=== PATIENT | female | born 1945 | race Caucasian/White ===

== ENCOUNTER 2022-10-28 17:42 | Inpatient (IN) | payer MEDICARE, MEDICAID, SELFPAY ==
[2022-10-28] VITALS (10 sets, daily range): BP systolic 134–200; BP diastolic 61–87; PULSE 80–89; RESP 18–20; TEMP 36.8–36.9; O2SAT 95–97; BMI 51.5
[2022-10-28 19:15] LABS: Basophils # 0.1 K/mm3 (0-0.2); Basophils % 0.4 % (0.1-2.0); Eosinophils # 0.4 K/mm3 (0.0-0.4); Eosinophils % 2.8 % (0.1-12.0); Hematocrit 33.9 % (37.0-47.0); Hemoglobin 10.4 g/dL (12.2-16.2); Lymphocytes # 2.2 K/mm3 (0.7-4.5); Lymphocytes % 16.8 % (10-50); Mean Corpuscular HGB Conc 30.8 g/dL (31.8-35.4); Mean Corpuscular Hemoglobin 25.9 pg (27.0-31.2); Mean Corpuscular Volume 84.1 fl (81-99); Mean Platelet Volume 9.4 fl (7.4-10.4); Monocytes # 0.8 K/mm3 (0.1-1.0); Monocytes % 5.8 % (1.7-9.3); Neutrophils # 9.6 K/mm3 (1.8-7.8); Neutrophils % 74.1 % (37.0-80.0); Platelet Count 223 K/mm3 (142-424); Red Blood Count 4.03 M/mm3 (4.20-5.40); Red Cell Distribution Width 16.2 % (11.5-17.5); White Blood Count 12.9 K/mm3 (4.8-10.8)
[2022-10-28 19:25] LABS: Chloride 100 mmol/L (98-107); Potassium 4.1 mmoL/L (3.5-5.1); Sodium 137 mmol/L (136-145)
[2022-10-28 19:28] LABS: Alanine Aminotransferase 15 U/L (12-78); Albumin Level 3.5 g/dl (3.5-5.0); Alkaline Phosphatase 79 U/L (38-126); Anion Gap 12.1 mEq/L (5-15); Aspartate Amino Transferase 33 U/L (14-36); Bilirubin,Total 0.3 mg/dl (0.2-1.3); Blood Urea Nitrogen 14 mg/dl (7-17); Carbon Dioxide 29 mmol/L (22.0-30.0); Creatinine Clearance Estimated 41 mL/min (50-200); Estimated Glomerular Filt Rate 70 ml/min (>60); GFR (African American) 84 ML/MIN (>60); Globulin 3.6 g/dL (1.3-3.2); Total Protein,Serum 7.1 g/dl (6.3-8.2)
[2022-10-28 19:29] LABS: Calcium 9.1 mg/dl (8.4-10.2); Glucose 98 mg/dl (74-100)
--- NOTE | 2022-10-28 19:51 | PC.NURSE ---
Attempted to collect UA on pt with in/out cath. Shameka (tech) at bedside to assist, unable to position pt after several attempts to visualize urethra or vagina. Pt has significant amount of edema with multiple lesions. Large amount of purulent, malodorous discharge draining from area. MD informed of situation.
--- NOTE | 2022-10-28 20:05 | CT_ITS ---
PROCEDURE INFORMATION: Exam: CT Abdomen And Pelvis With Contrast Exam date and time: 10/28/2022 8:24 PM Age: 77 years old Clinical indication: Other: Vaginal bleeding; Prior surgery; Surgery date: 6+ months; Surgery type: Cholecystectomy TECHNIQUE: Imaging protocol: Computed tomography of the abdomen and pelvis with contrast. Radiation optimization: All CT scans at this facility use at least one of these dose optimization techniques: automated exposure control; mA and/or kV adjustment per patient size (includes targeted exams where dose is matched to clinical indication); or iterative reconstruction. Contrast material: ISOVUE; Contrast volume: 75 ml; Contrast route: IV; REPORTING DATA: Count of CT and Cardiac NM exams in prior 12 months: This patient has received 0 known CTs and 0 known cardiac nuclear medicine studies in the 12 months prior to the current study. COMPARISON: No relevant prior studies available. FINDINGS: Lungs: Lingula bronchiectasis. Mild scarring and atelectasis in the lower lungs. Heart: Mitral valve calcifications. Coronary arteries: Coronary artery calcifications. Liver: Hepatic cirrhosis with portal hypertension. Gallbladder and bile ducts: Gallbladder is absent. Pancreas: Mild pancreatic atrophy. Spleen: Mild splenomegaly. Adrenal glands: Normal. No mass. Kidneys and ureters: Low attenuation renal lesions measuring up to 17 mm in diameter are incompletely characterized, but are likely cysts. No followup imaging is warranted. Exophytic left renal nodule has possible enhancing components on image 48 series 1001. Stomach and bowel: Mild sigmoid diverticulosis without diverticulitis. Appendix: No evidence of appendicitis. Intraperitoneal space: Unremarkable. No free air. No significant fluid collection. Vasculature: The arteries demonstrate moderate atherosclerotic disease. Lymph nodes: Unremarkable. No enlarged lymph nodes. Urinary bladder: Urinary bladder is severely dilated. Bilateral hydronephrosis likely related to dilated urinary bladder. Reproductive: The endometrial cavity appears dilated and fluid-filled measuring up to 3.1 cm. The lower uterus and cervix appear enlarged. Bones/joints: Unremarkable. No acute fracture. Soft tissues: Evaluation is significantly limited due to soft tissue attenuation. Other findings: Stigmata of old granulomatous disease. IMPRESSION: 1. Evaluation is significantly limited due to soft tissue attenuation. 2. The endometrial cavity appears dilated and fluid-filled measuring up to 3.1 cm. The lower uterus and cervix appear enlarged. This is worrisome for cervical malignancy causing uterine obstruction. Endometrial hyperplasia/carcinoma is also possible. 3. Urinary bladder is severely dilated. This is worrisome for possible outlet obstruction related to malignancy. 4. Bilateral hydronephrosis likely related to dilated urinary bladder. Please exclude superimposed infection. 5. Hepatic cirrhosis with portal hypertension. 6. Exophytic left renal nodule has possible enhancing components on image 48 series 1001. Renal cell carcinoma is possible. 7. THIS REPORT CONTAINS FINDINGS THAT MAY BE CRITICAL TO PATIENT CARE. The findings were verbally communicated via telephone conference with Dr. Gracia at 8:45 PM EDT on 10/28/2022. The findings were acknowledged and understood. COMMENTS: Consistent with the [employer]'s Incidental Findings Committee white paper (J Am Fabien Radiol 2018): Any incidental renal lesion less than 1 cm or classified as too small to characterize, or any incidental cystic renal lesion characterized as simple-appearing
--- NOTE | 2022-10-28 20:28 | PC.NURSE ---
Pt to CT via stretcher
--- NOTE | 2022-10-28 20:35 | PC.NURSE ---
Pt back to room from [facility]
--- NOTE | 2022-10-28 20:45 | PC.NURSE ---
Dr. Gracia on phone with JAIMEAD
[2022-10-28 21:02] LABS: Microscopic, Urine URINE MICROSCOPIC (MICROSCOPIC)
[2022-10-28 21:04] LABS: Appearance,Urine SL CLOUDY (Clear); Bilirubin,Urine Negative (Negative); Blood, Urine 2+ (Negative); Color,Urine YELLOW (Yellow); Glucose,Urine (UA) Negative (Negative); Ketones,Urine Negative (Negative); Leukocyte Esterase,Urine 1+ (Negative); Nitrate,Urine POSITIVE (Negative); PH,Urine 5.5 (5.0-8.5); Protein,Urine 1+ (Negative); Urobilinogen,Urine 0.2 EU/dl (0.2)
--- NOTE | 2022-10-28 21:31 | PC.NURSE ---
Waiting for call back from [facility]. They did advise they have a wait list at this time.
--- NOTE | 2022-10-28 21:34 | HMH.EDUROGF ---
Discharge Plan Disposition Chief Complaint: Urogenital-Female Clinical Impressions Clinical Impression: Urinary tract infection, Cervical cancer, Acute urinary retention, Diabetes mellitus Discharge ED Provider: Basil (ED),Didier Mcclure Female Urogenital HPI General Chief complaint: Urogenital-Female Stated complaint: blood when urinating Time Seen by Provider: 10/28/22 21:34 Mode of Arrival: Wheelchair Source of Information: Patient, Relative and Medical Record Limitations: No Limitations Description of Symptoms (Recalled from ER Triage Doc. by RN): 77 F presents with 2 weeks of painful urination, bleeding, and a strong foul odor coming from her vagina. Patient reports she has had the painful urination in the past; however, the smell is worrying her. History of Present Illness HPI Narrative: pt with difficulty urinating and has vag bleeding and foul smelling d/c over the last 2 weeks - last pelvis about 3-4 yrs ago - hx of diabetes - MD Complaint: UTI , vaginal discharge and pelvic pain Onset (ago): day(s) Severity: moderate Duration: constant Urinary Symptoms: foul smelling urine Vaginal discharge: blood Sexual activity: no : No Associated symptoms: vaginal discharge and vaginal bleeding Related Data Home Medications Medication Instructions Recorded Confirmed acetaminophen 300 mg-codeine 60 mg 1 tab PO Q8H PRN Pain 10/28/22 10/28/22 tablet bumetanide 1 mg tablet 1 mg PO DAILY Edema 10/28/22 10/28/22 cholecalciferol (vitamin D3) 125 125 mcg PO DAILY Supplement 10/28/22 10/28/22 mcg (5,000 unit) tablet (Vitamin D3) gabapentin 400 mg capsule 400 mg PO TID Pain 10/28/22 10/28/22 glipizide 5 mg tablet 5 mg PO BID Diabetes 10/28/22 10/28/22 levothyroxine 100 mcg tablet 100 mcg PO DAILY Supplement 10/28/22 10/28/22 loratadine 10 mg tablet 10 mg PO DAILY Allergy symptoms 10/28/22 10/28/22 metformin 500 mg tablet 500 mg PO BIDWMEAL Diabetes 10/28/22 10/28/22 omeprazole 20 mg tablet,delayed 20 mg PO DAILY gerd 10/28/22 10/28/22 release oxybutynin chloride 5 mg 5 mg PO DAILY bladder 10/28/22 10/28/22 tablet,extended release 24 hr pravastatin 80 mg tablet 80 mg PO HS Cholesterol 10/28/22 10/28/22 Allergies Allergy/AdvReac Type Severity Reaction Status Date / Time cephalexin [From Keflex] AdvReac Intermediate Hives Verified 10/28/22 18:20 [facility] Disclaimer: The information contained in this section may have been updated after the patient was seen, as this information can be updated by other users. Social History Smoking Status: Former smoker alcohol intake: never current occupational status: retired Travel in the last 8 weeks: None ROS Obtained: Yes All systems reviewed & no additional complaints except as documented Physical Exam General General appearance: alert and obese Head Head exam: normocephalic Eye Eye exam: Present PERRL and EOMI; Absent scleral icterus ENT ENT exam: Present normal oropharynx Neck Neck exam: Present full ROM Respiratory Respiratory exam: Present other (dec bs bilat ); Absent respiratory distress Cardiovascular Cardiovascular exam: Present regular rate, systolic murmur and +S4 Abdominal Exam Abdominal exam: Present soft; Absent tenderness or guarding Extremities Exam Extremities exam: Absent calf tenderness Neurological Exam Neurological exam: Present alert, oriented X3 and CN II-XII intact; Absent motor sensory deficit Psychiatric Psychiatric exam: Present normal affect Skin Skin exam: Absent rash Medical Decision Making Medical Records Medical records reviewed: Yes I reviewed the patient's medical records. Bautista Inquiry Pt receiving controlled substance: No Vital Signs: 10/28/22 17:44 10/28/22 18:32 10/28/22 20:01 Temperature 98.5 F Temperature Source Oral Pulse Rate 80 80 Pulse Rate [Left] 85 Respiratory Rate 19 20 Blood Pressure 190/74 H 189/80 H Blood Pressure [Right Arm] 173/86 H Blood Pressure Mean 121 B
--- NOTE | 2022-10-28 21:39 | PC.NURSE ---
Waiting for call back from [facility]
--- NOTE | 2022-10-28 21:50 | PC.NURSE ---
tutorial laboratory supervisor notified of need for room
--- NOTE | 2022-10-28 22:01 | XR_ITS ---
PROCEDURE INFORMATION: Exam: XR Chest Exam date and time: 10/28/2022 10:02 PM Age: 77 years old Clinical indication: Shortness of breath; Additional info: SOB TECHNIQUE: Imaging protocol: Radiologic exam of the chest. Views: 1 view. COMPARISON: CT ABDOMEN PELVIS W CON 04/23/2023 20:24 FINDINGS: Lungs: Mild scarring and atelectasis in the lower lungs. Pleural spaces: Unremarkable. No pleural effusion. No pneumothorax. Heart/Mediastinum: Mild atherosclerotic disease of the aorta. No cardiomegaly. Bones/joints: Unremarkable. IMPRESSION: No active disease.
[2022-10-28 22:02] LABS: Coronavirus 19, PCR Not Detected (NotDetected); Influenza A, PCR Not Detected (NotDetected); Influenza B, PCR Not Detected (NotDetected)
[2022-10-28 22:06] LABS: Bacteria,Urine 4+ /lpf
--- NOTE | 2022-10-28 22:16 | PC.NURSE ---
Report received from Isabel Paniagua RN
[2022-10-28 22:18] LABS: Lactic Acid 1.6 mmol/L (0.7-2.1)
--- NOTE | 2022-10-28 22:48 | PC.NURSE ---
Kami Juarez Rn spoke with Bridger Nassar RN in ER who confirms vancomycin dose was confirmed with pharmacy that doseage is 2500 mg iv
--- NOTE | 2022-10-28 23:17 | EXP.HP ---
History of Present Illness *Admission Date: 10/28/22 *Reason for visit:: Dysuria, Urinary Retention *History of present illness: Ms. Figueroa is a 77-year-old female with a past medical history of DM, Diabetic Neuropathies, Hypothyroidism and Hyperlipidemia. She presents to [facility] due to a 2-week reported period of dysuria, urinary retention, strong vaginal odor and vaginal bleeding. In the ER the patient underwent a CT of the abdomen and pelvis that showed bilateral hydronephrosis related to dilated urinary bladder, endometrial cavity appearing dilated and fluid filled measuring up to 3.1 cm worrisome for cervical malignancy causing uterine obstruction. CBC showed a slightly elevated WBC at 12.9. CMP was unremarkable.Urinalysis showed 1 plus nitrates, 2 plus blood, 1 plus leukoesterase and 4 plus bacteria. In the ER, the patient had a carvalho placed and it returned 2000 ml of urine. The patient was admitted with initial impression: Acute Urinary Retention and UTI. OBGYN was asked to be primary. Hospital Medicine was consulted for medical management. [facility] Disclaimer: The information contained in this section may have been updated after the patient was seen, as this information can be updated by other users. Medical History Diabetes Hyperlipidemia Hypothyroidism Surgical History Hx of cholecystectomy Family History No significant family history Social History Smoking Status: Former smoker alcohol intake: never current occupational status: retired Travel in the last 8 weeks: None Review of Systems Review of Systems Review of systems:: pertinent systems reviewed and negative unless documented below Constitutional Constitutional: Reports system reviewed and no additional complaints, except as documented Eyes Eyes: Reports system reviewed and no additional complaints, except as documented ENT Ears, Nose, Mouth, and Throat: Reports system reviewed and no additional complaints, except as documented *Cardiovascular Cardiovascular: Reports system reviewed and no additional complaints, except as documented *Respiratory Respiratory: Reports system reviewed and no additional complaints, except as documented *Gastrointestinal Gastrointestinal: Reports abdominal pain *Genitourinary Genitourinary: Reports difficulty voiding, Reports dysuria, Reports hematuria, Reports vaginal discharge and Reports vaginal odor *Musculoskeletal Musculoskeletal: Reports system reviewed and no additional complaints, except as documented Integumentary/Breasts Skin/Breast: Reports system reviewed and no additional complaints, except as documented *Neurologic Neurologic: Reports system reviewed and no additional complaints, except as documented Psychiatric Psychiatric: Reports system reviewed and no additional complaints, except as documented Endocrine Endocrine: Reports system reviewed and no additional complaints, except as documented Hematologic/Lymphatic Hematologic/Lymphatic: Reports system reviewed and no additional complaints, except as documented Allergic/Immunologic Allergic/Immunologic: Reports system reviewed and no additional complaints, except as documented Meds Home Medications and Allergies Home Medications Medication Instructions Recorded Confirmed Type acetaminophen 300 mg-codeine 60 mg 1 tab PO TIDP PRN Mild Pain (Scale 10/28/22 10/29/22 History tablet Score 1-4) bumetanide 1 mg tablet 1 mg PO DAILY Edema 10/28/22 10/29/22 History gabapentin 400 mg capsule 400 mg PO TID Pain 10/28/22 10/29/22 History glipizide 5 mg tablet 5 mg PO BID Diabetes 10/28/22 10/29/22 History insulin glargine 100 unit/mL (3 40 unit SQ DAILY Diabetes 10/28/22 10/29/22 History mL) subcutaneous pen (Lantus Solostar U-100 I
[2022-10-29] VITALS (7 sets, daily range): BP systolic 147–164; BP diastolic 50–66; PULSE 76–88; RESP 17–24; TEMP 36.5–36.8; O2SAT 90–93; BMI 54.3
[2022-10-29 00:35] LABS: POC Glucose,Bedside 124 (70-110)
--- NOTE | 2022-10-29 03:43 | PC.NURSE ---
1 ml added to balloon of carvalho.
--- NOTE | 2022-10-29 05:00 | PC.NURSE ---
Patient has been awake the entire nite with visitor at bedside. Patient has remained afebrile thus far. Patient vital signs are WNL. Patient is alert and oriented. Patient has clear, yellow urine draining per gravity at bedside via coude catheter. Patient lung sounds remain unchanged and bowel sounds remain normoactive. Patient does continue to have vaginal drainage that is very foul smelling and brownish in color. Patient remains in good spirits.
[2022-10-29 06:05] LABS: POC Glucose,Bedside 156 (70-110)
[2022-10-29 06:32] LABS: Basophils % 0.3 % (0.1-2.0); Eosinophils # 0.2 K/mm3 (0.0-0.4); Eosinophils % 1.5 % (0.1-12.0); Hematocrit 32.8 % (37.0-47.0); Lymphocytes # 1.8 K/mm3 (0.7-4.5); Lymphocytes % 12.9 % (10-50); Mean Corpuscular HGB Conc 30.5 g/dL (31.8-35.4); Mean Corpuscular Hemoglobin 25.4 pg (27.0-31.2); Mean Corpuscular Volume 83.4 fl (81-99); Mean Platelet Volume 9.7 fl (7.4-10.4); Monocytes # 0.8 K/mm3 (0.1-1.0); Monocytes % 5.5 % (1.7-9.3); Neutrophils % 79.8 % (37.0-80.0); Platelet Count 216 K/mm3 (142-424); Red Blood Count 3.93 M/mm3 (4.20-5.40); Red Cell Distribution Width 16.1 % (11.5-17.5); White Blood Count 13.8 K/mm3 (4.8-10.8)
[2022-10-29 06:41] LABS: Chloride 102 mmol/L (98-107); Sodium 139 mmol/L (136-145)
[2022-10-29 06:44] LABS: Blood Urea Nitrogen 10 mg/dl (7-17); Calcium 8.9 mg/dl (8.4-10.2); Carbon Dioxide 30 mmol/L (22.0-30.0); Creatinine Clearance Estimated 41 mL/min (50-200); Estimated Glomerular Filt Rate 81 ml/min (>60); GFR (African American) 98 ML/MIN (>60); Glucose 133 mg/dl (74-100)
--- NOTE | 2022-10-29 07:55 | HMH.PHAINT1 ---
Pharmacy Intervention Comments: MEDICATION RECONCILIATION COMPLETED ON PATIENT USING EXTERNAL FILL HISTORY FROM PHARMACY AND DON REPORT. -IVON COLMENARES, CURTD
--- NOTE | 2022-10-29 08:16 | PC.NURSE ---
ASSISTED PT TO RESTROOM VIA WHEELCHAIR. PT TOLERATED WELL. CHANGED BOTTOM LINENS AND CHUX. MODERATE AMOUNT OF BROWN FLUID NOTED TO CHUX WITH FOUL ODOR. DR VALLEJO IN DEPT AND AWARE.
--- NOTE | 2022-10-29 08:35 | EXP.PHA.CONS ---
Pharmacy Consult Date: 10/29/22 Time: 08:35 Referring provider: DR VALLEJO Reason for Consult:: VANCOMYCIN DOSING CONSULT Allergies Allergy/AdvReac Type Severity Reaction Status Date / Time cephalexin [From Keflex] AdvReac Intermediate Hives Verified 10/28/22 18:20 Home Medications Medication Instructions Recorded Confirmed Type acetaminophen 300 mg-codeine 60 mg 1 tab PO TIDP PRN Mild Pain (Scale 10/28/22 10/29/22 History tablet Score 1-4) bumetanide 1 mg tablet 1 mg PO DAILY Edema 10/28/22 10/28/22 History cholecalciferol (vitamin D3) 125 125 mcg PO DAILY Supplement 10/28/22 10/28/22 History mcg (5,000 unit) tablet (Vitamin D3) gabapentin 400 mg capsule 400 mg PO TID Pain 10/28/22 10/28/22 History glipizide 5 mg tablet 5 mg PO BID Diabetes 10/28/22 10/28/22 History insulin glargine 100 unit/mL (3 40 unit SQ DAILY Diabetes 10/28/22 10/28/22 History mL) subcutaneous pen (Lantus Solostar U-100 Insulin) levothyroxine 100 mcg tablet 100 mcg PO DAILY THYROID 10/28/22 10/28/22 History loratadine 10 mg tablet 10 mg PO DAILY Allergy symptoms 10/28/22 10/28/22 History metformin 500 mg tablet 500 mg PO BIDWMEAL Diabetes 10/28/22 10/28/22 History omeprazole 20 mg tablet,delayed 20 mg PO DAILY Acid reflux 10/28/22 10/28/22 History release ergocalciferol (vitamin D2) 1,250 1,250 mcg PO WEEKLY Supplement 10/29/22 10/29/22 History mcg (50,000 unit) capsule (Vitamin D2) oxybutynin chloride 10 mg 10 mg PO DAILY BLADDER 10/29/22 10/29/22 History tablet,extended release 24 hr pravastatin 40 mg tablet 40 mg PO HS Cholesterol 10/29/22 10/29/22 History New Prescriptions to Start Prescriptions: Height: 1.63 m Weight: 144.242 kg Laboratory Results:: Laboratory Results - last 24 hr 10/28/22 18:55: Urine Color Yellow, Urine Appearance Sl cloudy, Urine pH 5.5, Ur Specific [place] 1.020, Urine Protein 1+, Urine Glucose (UA) Negative, Urine Ketones Negative, Urine Blood 2+, Urine Nitrate Positive, Urine Bilirubin Negative, Urine Urobilinogen 0.2, Ur Leukocyte Esterase 1+ A, Urine RBC 10-20, Urine WBC 5-10, Ur Squamous Epith Cells 3-5, Urine Bacteria 4+ 10/28/22 19:00: WBC 12.9 H, RBC 4.03 L, Hgb 10.4 L, Hct 33.9 L, MCV 84.1, MCH 25.9 L, MCHC 30.8 L, RDW 16.2, Plt Count 223, MPV 9.4, Neut % (Auto) 74.1, Lymph % (Auto) 16.8, Andrew % (Auto) 5.8, Eos % (Auto) 2.8, Baso % (Auto) 0.4, Neut # (Auto) 9.6 H, Lymph # (Auto) 2.2, Andrew # (Auto) 0.8, Eos # (Auto) 0.4, Baso # (Auto) 0.1 10/28/22 19:00: Sodium 137, Potassium 4.1, Chloride 100, Carbon Dioxide 29, Anion Gap 12.1, BUN 14, Creatinine 0.80, Estimated Creat Clear 41, Estimated GFR 70, Est GFR ( Amer) 84, Glucose 98, Calcium 9.1, Total Bilirubin 0.3, AST 33, ALT 15, Alkaline Phosphatase 79, Total Protein 7.1, Albumin 3.5, Globulin 3.6 H, Albumin/Globulin Ratio 1.0 L 10/28/22 21:50: SARS-CoV-2 (PCR) Not detected, Influenza A Untype (PCR) Not detected, Influenza Type B (PCR) Not detected 10/28/22 21:55: Lactate 1.6 10/29/22 00:28: POC Glucose 124 H 10/29/22 05:58: POC Glucose 156 H 10/29/22 06:26: WBC 13.8 H, RBC 3.93 L, Hgb 10.0 L, Hct 32.8 L, MCV 83.4, MCH 25.4 L, MCHC 30.5 L, RDW 16.1, Plt Count 216, MPV 9.7, Neut % (Auto) 79.8, Lymph % (Auto) 12.9, Andrew % (Auto) 5.5, Eos % (Auto) 1.5, Baso % (Auto) 0.3, Neut # (Auto) 11.0 H, Lymph # (Auto) 1.8, Andrew # (Auto) 0.8, Eos # (Auto) 0.2, Baso # (Auto) 0.0 10/29/22 06:26: Sodium 139, Potassium 4.0, Chloride 102, Carbon Dioxide 30, Anion Gap 11.0, BUN 10 D, Creatinine 0.70, Estimated Creat Clear 41, Estimated GFR 81, Est GFR ( Amer) 98, Glucose 133 H D, Calcium 8.9 Medical History: Medical History (Updated 10/28/22 @ 23:26 by Phani Staples DNP) Diabetes Hyperlipidemia Hypothyroidism Assessment and Plan Assessment and plan all Dx Assessment and Plan for all problems:: Pharmacokinetic dosing service Objective: Age: 77 yo Serum creatinine: 1 mg/dL Height: 64.2
--- NOTE | 2022-10-29 09:57 | PC.NURSE ---
0915: PT TAKEN TO DR VALLEJO'S OFFICE VIA WHEELCHAIR. ACCOMPANIED BY THIS RN AND KALE RAMIREZ. SEE DR VALLEJO'S NOTES FOR PROCEDURE DETAIL. 0945: PT RETURNED TO ROOM 280, CALL LIGHT WITHIN REACH. FAMILY PRESENT
--- NOTE | 2022-10-29 10:45 | PC.NURSE ---
DR DAMICO AT BEDSIDE SPEAKING WITH PATIENT AND FAMILY
--- NOTE | 2022-10-29 11:43 | HMH.ITSHM ---
Current Home Medications as stated by this patient Katty Figueroa or sales representative [employer]. []
--- NOTE | 2022-10-29 11:44 | HMH.ITSHM ---
Current Home Medications as stated by this patient Katty Figueroa or statement services representative. []
[2022-10-29 12:00] LABS: Hemoglobin A1C 5.7 % (4.0-6.0)
[2022-10-29 12:04] LABS: INR 1.14 (0.9-1.1); Prothrombin Time 12.2 seconds (10.1-12.5)
[2022-10-29 12:10] LABS: POC Glucose,Bedside 264 (70-110)
--- NOTE | 2022-10-29 12:19 | PC.NURSE ---
DR VALLEJO INQUIRED BY PHONE. PT HAS BEEN ACCEPTED BY DR SHANAE FLORES AT , AWAITING BED AVAILABILITY.
--- NOTE | 2022-10-29 12:21 | PC.NURSE ---
SPOKE WITH EMBER IN RADIOLOGY, CT SCAN AND CHEST XRAY TO BE SENT TO [facility]IA [facility].
[2022-10-29 12:38] LABS: Thyroid Stimulating Hormone 0.58 uIU/mL (0.465-4.68)
--- NOTE | 2022-10-29 12:45 | EXP.HPDC ---
General Admission date:: 10/28/22 Discharge date: 10/29/22 *Admission Date: 10/28/22 *Chief complaint: Vaginal bleeding/discharge, lower abdominal pain *History of present illness: Ms. Figueroa is a 77-year-old female with a past medical history of DM, Diabetic Neuropathies, Hypothyroidism and Hyperlipidemia. She presents to [facility] due to a 2-week reported period of dysuria, urinary retention, strong vaginal odor and vaginal bleeding.? In the ER the patient underwent a CT of the abdomen and pelvis that showed bilateral hydronephrosis related to dilated urinary bladder, endometrial cavity appearing dilated and fluid filled measuring up to 3.1 cm worrisome for cervical malignancy causing uterine obstruction.? CBC showed a slightly elevated WBC at 12.9.? CMP was unremarkable.Urinalysis showed 1 plus nitrates, 2 plus blood, 1 plus leukoesterase and 4 plus bacteria.? In the ER, the patient had a carvalho placed and it returned 2000 ml of urine.? The patient was admitted with initial impression:? Acute Urinary Retention and UTI.? Possible gynecologic malignancy. Hospital Medicine was consulted for medical management of her diabetes. [facility] Disclaimer: The information contained in this section may have been updated after the patient was seen, as this information can be updated by other users. Medical History Diabetes Hyperlipidemia Hypothyroidism Surgical History Hx of cholecystectomy Family History No significant family history Social History Smoking Status: Former smoker alcohol intake: never current occupational status: retired Travel in the last 8 weeks: None Review of Systems *Neurologic Neurologic: Reports system reviewed and no additional complaints, except as documented Exam Data for Last 24 hours Vital signs and Labs for Last 24 Hours: Temp Pulse Resp BP Pulse Ox 97.7 F 80 20 157/53 H 93 L 10/29/22 12:10 10/29/22 12:10 10/29/22 12:10 10/29/22 12:10 10/29/22 12:10 Laboratory Results - last 24 hr 10/28/22 18:55: Urine Color Yellow, Urine Appearance Sl cloudy, Urine pH 5.5, Ur Specific [place] 1.020, Urine Protein 1+, Urine Glucose (UA) Negative, Urine Ketones Negative, Urine Blood 2+, Urine Nitrate Positive, Urine Bilirubin Negative, Urine Urobilinogen 0.2, Ur Leukocyte Esterase 1+ A, Urine RBC 10-20, Urine WBC 5-10, Ur Squamous Epith Cells 3-5, Urine Bacteria 4+ 10/28/22 19:00: WBC 12.9 H, RBC 4.03 L, Hgb 10.4 L, Hct 33.9 L, MCV 84.1, MCH 25.9 L, MCHC 30.8 L, RDW 16.2, Plt Count 223, MPV 9.4, Neut % (Auto) 74.1, Lymph % (Auto) 16.8, [place] % (Auto) 5.8, Eos % (Auto) 2.8, Baso % (Auto) 0.4, Neut # (Auto) 9.6 H, Lymph # (Auto) 2.2, [place] # (Auto) 0.8, Eos # (Auto) 0.4, Baso # (Auto) 0.1 10/28/22 19:00: Sodium 137, Potassium 4.1, Chloride 100, Carbon Dioxide 29, Anion Gap 12.1, BUN 14, Creatinine 0.80, Estimated Creat Clear 41, Estimated GFR 70, Est GFR ( Amer) 84, Glucose 98, Calcium 9.1, Total Bilirubin 0.3, AST 33, ALT 15, Alkaline Phosphatase 79, Total Protein 7.1, Albumin 3.5, Globulin 3.6 H, Albumin/Globulin Ratio 1.0 L 10/28/22 21:50: SARS-CoV-2 (PCR) Not detected, Influenza A Untype (PCR) Not detected, Influenza Type B (PCR) Not detected 10/28/22 21:55: Lactate 1.6 10/29/22 00:28: POC Glucose 124 H 10/29/22 05:58: POC Glucose 156 H 10/29/22 06:26: WBC 13.8 H, RBC 3.93 L, Hgb 10.0 L, Hct 32.8 L, MCV 83.4, MCH 25.4 L, MCHC 30.5 L, RDW 16.1, Plt Count 216, MPV 9.7, Neut % (Auto) 79.8, Lymph % (Auto) 12.9, [place] % (Auto) 5.5, Eos % (Auto) 1.5, Baso % (Auto) 0.3, Neut # (Auto) 11.0 H, Lymph # (Auto) 1.8, [place] # (Auto) 0.8, Eos # (Auto) 0.2, Baso # (Auto) 0.0 10/29/22 06:26: Sodium 139, Potassium 4.0, Chloride 102, Carbon Dioxide 30, Anion Gap 11.0, BUN 10 D, Creatinine 0.70, Estimated Cr
--- NOTE | 2022-10-29 13:50 | PC.NURSE ---
1350- SPOKE WITH , NO BEDS AVAILABLE AT THIS TIME
--- NOTE | 2022-10-29 14:37 | EXP.ACUTE.PN ---
Subjective *Date: 10/29/22 *Time: 14:42 Interval history: Follow-up consult today. Patient hemodynamically stable on exam. Denies fever, chills, shortness of breath. Poor appetite. Still complaining of significant vaginal discharge. On room air. Medical Exam Vital signs and Labs for Last 24 Hours: Vital Signs Temp Pulse Pulse Resp BP BP Pulse Ox 10/29/22 12:10 97.7 F 80 20 157/53 H 93 L 10/29/22 07:54 90 L 10/29/22 07:30 98.2 F 76 24 150/50 H 90 L 10/29/22 04:00 98.1 F 88 17 147/66 H 90 L 10/28/22 22:50 19 10/28/22 23:21 98.2 F 84 18 134/87 96 10/28/22 22:19 98.5 F 81 18 168/61 H 10/28/22 22:03 88 200/84 H 97 10/28/22 21:31 83 168/61 H 96 10/28/22 21:01 86 186/76 H 95 10/28/22 20:33 89 171/75 H 95 10/28/22 20:01 80 189/80 H 95 10/28/22 18:32 80 20 190/74 H 95 10/28/22 17:44 98.5 F 85 19 173/86 H 97 Intake and Output 10/28/22 10/29/22 10/29/22 23:59 07:59 15:59 Intake Total 102 / 102 Output Total 900 / 900 Balance 102 / 102 -900 / -900 Intake: Intake, Total IV Amount 102 / 102 Levofloxacin/D5w 500 mg In 100 100 / 100 ml @ 100 mls/hr IV Q[facility] Rx# :[id number] Vancomycin HCl 2,500 mg In 0.9 2 / 2 % Sodium Chloride 250 ml @ 125 mls/hr IV ONCE ONE Rx#:[id number] Output: Output, Urine Amount (Catheter) 900 / 900 Coude 900 / 900 Other: Number of Bowel Movements 1 Weight 136.078 kg 144.242 kg 144.242 kg Patient Weight 10/29/22 23:59 Weight 144.242 kg Laboratory Results - last 24 hr 10/28/22 18:55: Urine Color Yellow, Urine Appearance Sl cloudy, Urine pH 5.5, Ur Specific [place] 1.020, Urine Protein 1+, Urine Glucose (UA) Negative, Urine Ketones Negative, Urine Blood 2+, Urine Nitrate Positive, Urine Bilirubin Negative, Urine Urobilinogen 0.2, Ur Leukocyte Esterase 1+ A, Urine RBC 10-20, Urine WBC 5-10, Ur Squamous Epith Cells 3-5, Urine Bacteria 4+ 10/28/22 19:00: WBC 12.9 H, RBC 4.03 L, Hgb 10.4 L, Hct 33.9 L, MCV 84.1, MCH 25.9 L, MCHC 30.8 L, RDW 16.2, Plt Count 223, MPV 9.4, Neut % (Auto) 74.1, Lymph % (Auto) 16.8, [place] % (Auto) 5.8, Eos % (Auto) 2.8, Baso % (Auto) 0.4, Neut # (Auto) 9.6 H, Lymph # (Auto) 2.2, [place] # (Auto) 0.8, Eos # (Auto) 0.4, Baso # (Auto) 0.1 10/28/22 19:00: Sodium 137, Potassium 4.1, Chloride 100, Carbon Dioxide 29, Anion Gap 12.1, BUN 14, Creatinine 0.80, Estimated Creat Clear 41, Estimated GFR 70, Est GFR ( Amer) 84, Glucose 98, Calcium 9.1, Total Bilirubin 0.3, AST 33, ALT 15, Alkaline Phosphatase 79, Total Protein 7.1, Albumin 3.5, Globulin 3.6 H, Albumin/Globulin Ratio 1.0 L 10/28/22 21:50: SARS-CoV-2 (PCR) Not detected, Influenza A Untype (PCR) Not detected, Influenza Type B (PCR) Not detected 10/28/22 21:55: Lactate 1.6 10/29/22 00:28: POC Glucose 124 H 10/29/22 05:58: POC Glucose 156 H 10/29/22 06:26: WBC 13.8 H, RBC 3.93 L, Hgb 10.0 L, Hct 32.8 L, MCV 83.4, MCH 25.4 L, MCHC 30.5 L, RDW 16.1, Plt Count 216, MPV 9.7, Neut % (Auto) 79.8, Lymph % (Auto) 12.9, [place] % (Auto) 5.5, Eos % (Auto) 1.5, Baso % (Auto) 0.3, Neut # (Auto) 11.0 H, Lymph # (Auto) 1.8, [place] # (Auto) 0.8, Eos # (Auto) 0.2, Baso # (Auto) 0.0 10/29/22 06:26: Sodium 139, Potassium 4.0, Chloride 102, Carbon Dioxide 30, Anion Gap 11.0, BUN 10 D, Creatinine 0.70, Estimated Creat Clear 41, Estimated GFR 81, Est GFR ( Amer) 98, Glucose 133 H D, Calcium 8.9 10/29/22 06:26: Hemoglobin A1c 5.7 10/29/22 06:26: TSH 0.58 10/29/22 11:47: PT 12.2, INR 1.14 H 10/29/22 11:58: POC Glucose 264 H I & O for Labs for Last 24 Hours: Intake & Output 10/26/22 10/27/22 10/28/22 10/29/22 23:59 23:59 23:59 23:59 Intake Total 102 / 102 Output Total 900 / 900 Balance 102 / 102 -900 / -900 Weight 136.078 kg 144.242 kg Microbiology Reports for the Last 24 Hours: Microbiology 10/28/22 18:55 Urine,Clean Catch Urine Culture - Preliminary
[2022-10-29 17:10] LABS: POC Glucose,Bedside 143 (70-110)
--- NOTE | 2022-10-29 18:25 | PC.NURSE ---
16:40- no acute changes this shift, vitals remain stable, vaginal discharge unchanged. Partial bath and linen change performed pt tolerated well. Continue to await bed placement at .
--- NOTE | 2022-10-29 18:46 | PC.NURSE ---
ALL CHARTING AND CARE BY KALE RAMIREZ, DONE UNDER MY DIRECT SUPERVISION THIS SHIFT
[2022-10-29 20:10] LABS: POC Glucose,Bedside 171 (70-110)
[2022-10-30] VITALS: BP 170/61; PULSE 79; RESP 24; TEMP 36.9; O2SAT 90
[2022-10-30 04:00] VITALS: BP 169/63; PULSE 78; RESP 24; TEMP 36.8; O2SAT 90
--- NOTE | 2022-10-30 04:22 | PC.NURSE ---
Nursing reassessment done at this time, pt has slept on and off throughout the night with some periods of feeling hot and wanting to sit on the side of the bed. Pain has remained low and pt medicated per mar once for headache this shift. VSS. carvalho intact and draining clear yellow urine at this time. Iv to right hand is patent, saline locked at this time. Vaginal discharge remains small to moderate amount with foul smell. Skin intact with no open areas. Awaiting bed at at this time. Cb within reach. bowel sounds active in all quandrants, oxygen stats periodically drop but pt refuses to wear cpap.
--- NOTE | 2022-10-30 05:29 | PC.NURSE ---
Pt rang out and had a period of confusion, pt reported feeling pain and requested something for pain, when rn went in room pt was unsure why rn was in room and reported she never asked for anything and doesnt remember talking to anyone will pass in report to tell md about confusion. VSS.
[2022-10-30 05:50] LABS: POC Glucose,Bedside 118 (70-110)
[2022-10-30 08:00] VITALS: BP 158/53; PULSE 66; RESP 21; TEMP 37.1; O2SAT 94
[2022-10-30 09:18] LABS: Alanine Aminotransferase 17 U/L (12-78); Albumin Level 3.2 g/dl (3.5-5.0); Alkaline Phosphatase 76 U/L (38-126); Aspartate Amino Transferase 26 U/L (14-36); Bilirubin,Total 0.2 mg/dl (0.2-1.3); Blood Urea Nitrogen 9 mg/dl (7-17); Calcium 8.9 mg/dl (8.4-10.2); Carbon Dioxide 29 mmol/L (22.0-30.0); Chloride 103 mmol/L (98-107); Creatinine Clearance Estimated 41 mL/min (50-200); Estimated Glomerular Filt Rate 81 ml/min (>60); GFR (African American) 98 ML/MIN (>60); Globulin 3.2 g/dL (1.3-3.2); Glucose 137 mg/dl (74-100); Sodium 140 mmol/L (136-145); Total Protein,Serum 6.4 g/dl (6.3-8.2)
[2022-10-30 09:22] LABS: Basophils % 0.3 % (0.1-2.0); Eosinophils # 0.3 K/mm3 (0.0-0.4); Eosinophils % 2.3 % (0.1-12.0); Hematocrit 32.6 % (37.0-47.0); Hemoglobin 9.9 g/dL (12.2-16.2); Lymphocytes % 15.7 % (10-50); Mean Corpuscular HGB Conc 30.3 g/dL (31.8-35.4); Mean Corpuscular Hemoglobin 25.6 pg (27.0-31.2); Mean Corpuscular Volume 84.3 fl (81-99); Mean Platelet Volume 9.7 fl (7.4-10.4); Monocytes # 0.8 K/mm3 (0.1-1.0); Monocytes % 6.1 % (1.7-9.3); Neutrophils # 9.6 K/mm3 (1.8-7.8); Neutrophils % 75.6 % (37.0-80.0); Platelet Count 240 K/mm3 (142-424); Red Blood Count 3.87 M/mm3 (4.20-5.40); Red Cell Distribution Width 16.1 % (11.5-17.5); White Blood Count 12.7 K/mm3 (4.8-10.8)
--- NOTE | 2022-10-30 09:53 | PC.NURSE ---
[facility] called at this time for an update on Pt. report given. was informed there is no bed available still. [facility] states they will callback when bed becomes available.
[2022-10-30 10:09] VITALS: O2SAT 94
[2022-10-30 11:08] LABS: POC Glucose,Bedside 141 (70-110)
--- NOTE | 2022-10-30 13:29 | EXP.ACUTE.PN ---
Subjective *Date: 10/30/22 *Time: 13:29 Interval history: Patient states she is feeling better this morning. Stable on room air. Remains afebrile. No nausea or vomiting. Is having bowel movements. Gomez catheter still in place Medical Exam Vital signs and Labs for Last 24 Hours: Vital Signs Temp Pulse Resp BP Pulse Ox 10/30/22 10:09 94 L 10/30/22 08:00 98.8 F 66 21 158/53 H 94 L 10/30/22 04:00 98.2 F 78 24 169/63 H 90 L 10/30/22 00:00 98.5 F 79 24 170/61 H 90 L 10/29/22 20:00 91 L 10/29/22 19:36 98.0 F 82 22 164/53 H 91 L 10/29/22 16:20 98.1 F 78 18 156/59 H 92 L Intake and Output 10/29/22 10/30/22 10/30/22 23:59 07:59 15:59 Output Total 700 / 2700 1100 / 1600 500 / 1600 Balance -700 / -2700 -1100 / -1600 -500 / -1600 Output: Output, Urine Amount 700 / 1250 550 / 550 Output, Urine Amount (Catheter) 550 / 1050 500 / 1050 Coude 550 / 1050 500 / 1050 Other: Number of Unmeasured Voids 0 0 Number of Bowel Movements 1 Laboratory Results - last 24 hr 10/28/22 18:55: Urine Color Yellow, Urine Appearance Sl cloudy, Urine pH 5.5, Ur Specific [place] 1.020, Urine Protein 1+, Urine Glucose (UA) Negative, Urine Ketones Negative, Urine Blood 2+, Urine Nitrate Positive, Urine Bilirubin Negative, Urine Urobilinogen 0.2, Ur Leukocyte Esterase 1+ A, Urine RBC 10-20, Urine WBC 5-10, Ur Squamous Epith Cells 3-5, Urine Bacteria 4+ 10/29/22 16:40: POC Glucose 143 H 10/29/22 20:00: POC Glucose 171 H 10/30/22 05:42: POC Glucose 118 H 10/30/22 08:59: WBC 12.7 H, RBC 3.87 L, Hgb 9.9 L, Hct 32.6 L, MCV 84.3, MCH 25.6 L, MCHC 30.3 L, RDW 16.1, Plt Count 240, MPV 9.7, Neut % (Auto) 75.6, Lymph % (Auto) 15.7, [place] % (Auto) 6.1, Eos % (Auto) 2.3, Baso % (Auto) 0.3, Neut # (Auto) 9.6 H, Lymph # (Auto) 2.0, [place] # (Auto) 0.8, Eos # (Auto) 0.3, Baso # (Auto) 0.0 10/30/22 08:59: Sodium 140, Potassium 4.0, Chloride 103, Carbon Dioxide 29, Anion Gap 12.0, BUN 9, Creatinine 0.70, Estimated Creat Clear 41, Estimated GFR 81, Est GFR ( Amer) 98, Glucose 137 H, Calcium 8.9, Total Bilirubin 0.2, AST 26, ALT 17, Alkaline Phosphatase 76, Total Protein 6.4, Albumin 3.2 L, Globulin 3.2, Albumin/Globulin Ratio 1.0 L 10/30/22 11:00: POC Glucose 141 H I & O for Labs for Last 24 Hours: Intake & Output 10/27/22 10/28/22 10/29/22 10/30/22 23:59 23:59 23:59 23:59 Intake Total 102 / 102 Output Total 1600 / 2700 1600 / 1600 Balance 102 / 102 -1600 / -2700 -1600 / -1600 Weight 136.078 kg 144.242 kg Microbiology Reports for the Last 24 Hours: Microbiology 10/28/22 18:55 Urine,Clean Catch Urine Culture - Preliminary Gram Negative Rods Constitutional: Present no acute distress, morbidly obese and chronically ill appearing Head: Present atraumatic and normocephalic ENT: Present normal exam Respiratory: Present normal respiratory effort; Absent rhonchi, wheezes or crackles Cardiac: Present Reg Rate and Rhythm GI: Present soft and normal bowel sounds; Absent distention or tenderness Extremities: Present normal inspection, full ROM and edema (2+ to knees); Absent tenderness Skin: Present intact; Absent erythema Neuro: Present Grossly Intact, alert, awake and moves all extremities Assessment and Plan *Assessment and plan (1) Urinary retention: Status: Acute Category: Medical Code(s): R33.9 - Retention of urine, unspecified (2) Cervical mass: Status: Acute Category: Medical Code(s): N88.8 - Other specified noninflammatory disorders of cervix uteri (3) Diabetes: Status: Acute Category: Medical Code(s): E11.9 - Type 2 diabetes mellitus without complications (4) Hypothyroidism: Status: Acute Category: Medical Code(s): E03.9 - Hypothyroidism, unspecified (5) Hyperlipidemia: Status: Acute Category: Medical Code(s): E78.5 - Hyperlipidemia, unspecified (6) Morb
--- NOTE | 2022-10-30 14:24 | PC.NURSE ---
Called report to at [id number], spoke with Chika Newman RN on womens care unit. report was given.
--- NOTE | 2022-10-30 15:18 | PC.NURSE ---
[facility] on unit to transport Pt. report given, paperwork given.
--- NOTE | 2022-10-30 15:20 | PC.NURSE ---
EMS took Pt off unit at this time.
== END 2022-10-30 15:20 | disposition short-term general hospital (02) | DRG 690 ==
LOC: ER 20:12 → OB 10-29 01:02 → 2ND 10-29 13:32
PROVIDERS: Emergency Medicine; Internal Medicine Adolescent Medicine; Admitting Provider Nurse Practitioner Obstetrics & Gynecology; Emergency Provider Emergency Medicine; PCP Family Medicine; Visit Provider Nurse Practitioner Obstetrics & Gynecology
DX: N39.0 Urinary tract infection, site not specified (principal); Z68.43 Body mass index [BMI] 50.0-59.9, adult; R33.9 Retention of urine, unspecified; Z79.4 Long term (current) use of insulin; Z87.891 Personal history of nicotine dependence; E78.5 Hyperlipidemia, unspecified; E03.9 Hypothyroidism, unspecified; N88.8 Other specified noninflammatory disorders of cervix uteri; E11.40 Type 2 diabetes mellitus with diabetic neuropathy, unspecified; E66.01 Morbid (severe) obesity due to excess calories; R60.9 Edema, unspecified
CPT/HCPCS: 36415; 71045; 74177; 80048; 80053; 81001; 82962; 83036; 83605; 84443; 85025; 85610; 87040; 87086; 87088; 87186; 87636; C9803; J1956; J2405; J3370; Q9967; U0003; U0005